=== PATIENT | female | born 2000 | race Two or more races ===

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

== ENCOUNTER 2019-10-04 10:27 | Emergency (ER) | payer OTHER ==
[~2019-10-04] VITALS: Ht 157.5 cm; Wt 81.6 kg
[2019-10-04 10:42] VITALS: BP 139/90
[2019-10-04] MEDS ORDERED: KETOROLAC TROMETH 60MG/2ML VIAL IM ONE (12:00)
[2019-10-04] MEDS ORDERED: ONDANSETRON ODT 4 MG TAB PO ONE (12:00)
== END 2019-10-04 12:38 | disposition home or self-care (01) ==
LOC: ER 10:27
DX: G43.909 Migraine, unspecified, not intractable, without status migrainosus (principal); N39.0 Urinary tract infection, site not specified
CPT/HCPCS: 70450; 81002; 96372; 99284; J1885; Q0162; 81025